=== PATIENT | female | born 2000 | race Caucasian/White ===

== ENCOUNTER 2021-04-24 15:02 | Emergency (ER) | payer OTHER ==
[~2021-04-24] VITALS: Ht 160 cm; Wt 46.7 kg
[2021-04-24 15:44] VITALS: BP 122/68
[2021-04-24] MEDS ORDERED: LIDOCAINE HCL/MPF 1% 30 ML VIAL IJ ONE (16:07)
--- NOTE | 2021-04-24 16:50 | NUR ---
SUTURING DONE BY GWENDOLYN CARRILLO.
--- NOTE | 2021-04-24 17:05 | NUR ---
Patient discharged to home in stable condition. Written and verbal after care instructions given. Patient verbalizes understanding of instruction.
--- NOTE | 2021-04-24 17:05 | NUR ---
WOUND DRESSING DONE BY [employer].
== END 2021-04-24 17:06 | disposition home or self-care (01) ==
LOC: ER 15:04
DX: S61.412A Laceration without foreign body of left hand, initial encounter (principal); W26.0XXA Contact with knife, initial encounter; Y93.89 Activity, other specified; Y92.89 Other specified places as the place of occurrence of the external cause; Y99.8 Other external cause status
CPT/HCPCS: 12002; 99282; A6403; J3490

== ENCOUNTER 2022-08-27 15:11 | Emergency (ER) | payer OTHER ==
[~2022-08-27] VITALS: Ht 160 cm; Wt 43.1 kg
--- NOTE | 2022-08-27 15:52 | NUR ---
C/O RIGHT WRIST PAIN S/P "SHELF FELL ON IT"
[2022-08-27] MEDS ORDERED: ACETAMINOPHEN ES 500 MG TABLET PO ONE (16:00)
[2022-08-27] MEDS ORDERED: ACETAMINOPHEN ES 500 MG TABLET ONE (16:00)
--- NOTE | 2022-08-27 17:37 | NUR ---
Patient discharged to home in stable condition. Written and verbal after care instructions given. Patient verbalizes understanding of instruction.
[2022-08-27 17:38] VITALS: BP 131/81
== END 2022-08-27 17:39 | disposition home or self-care (01) ==
LOC: ER 15:25
DX: S62.151A Displaced fracture of hook process of hamate [unciform] bone, right wrist, initial encounter for closed fracture (principal); Z98.890 Other specified postprocedural states; W20.8XXA Other cause of strike by thrown, projected or falling object, initial encounter; Y93.89 Activity, other specified; Y92.89 Other specified places as the place of occurrence of the external cause; Y99.0 Civilian activity done for income or pay
CPT/HCPCS: 73110; 73130-TC